=== PATIENT | male | born 1955 | race Caucasian/White ===

== ENCOUNTER 2024-11-23 07:44 | Day surgery (SDC) | payer MEDICARE ==
[2024-11-19 10:54] LABS: BASOPHILS # (AUTO) 0.06 K/uL (0.00-0.20); BASOPHILS % (AUTO) 0.8 % (0.0-5.0); EOSINOPHILS # (AUTO) 0.34 K/uL (0.00-0.70); EOSINOPHILS % (AUTO) 4.7 % (0.0-8.0); HEMATOCRIT 50.6 % (42-54); IMMATURE GRANULOCYTE ABSOLUTE 0.02 K/uL (0-1); LYMPHOCYTES # (AUTO) 1.5 K/uL (1.0-4.8); LYMPHOCYTES % (AUTO) 20.6 % (21.0-51.0); MEAN CORPUSCULAR HEMOGLOBIN 29.1 pg (27.0-33.0); MEAN CORPUSCULAR HGB CONC 31.6 g/dL (32.0-36.0); MONOCYTES # (AUTO) 0.7 K/uL (0.1-1.0); MONOCYTES % (AUTO) 9.8 % (3.0-13.0); NEUTROPHILS # (AUTO) 4.6 K/uL (1.8-7.7); NEUTROPHILS % (AUTO) 63.8 % (40.0-77.0); PLATELET COUNT (AUTO) 173 K/uL (130-400); RED CELL DISTRIBUTION WIDTH 14.1 % (11.0-15.5); WHITE BLOOD COUNT (AUTO) 7.2 K/uL (4.8-10.8)
[2024-11-19 10:57] VITALS: BP 144/95; PULSE 70; RESP 16; TEMP 98.1
[2024-11-19 11:07] LABS: INR 0.97 (0.85-1.15); PROTHROMBIN TIME 10.9 SEC (9.6-11.6)
[2024-11-19 11:09] LABS: PARTIAL THROMBOPLASTIN TIME 30.1 SEC (26.3-35.5)
[2024-11-19 11:14] LABS: ALBUMIN 3.5 g/dL (3.5-5.0); BILIRUBIN,TOTAL 0.5 mg/dL (0.2-1.0); CREATININE 1.1 mg/dL (0.5-1.3); POTASSIUM 4.3 mmol/L (3.5-5.1); TOTAL PROTEIN, SERUM 7.2 g/dL (6.0-8.3)
[2024-11-19 11:15] LABS: APPEARANCE,URINE CLEAR (CLEAR); BILIRUBIN,URINE NEGATIVE (NEGATIVE); COLOR,URINE YELLOW (YELLOW); GLUCOSE, URINE (UA) NEGATIVE (NEGATIVE); KETONES,URINE NEGATIVE (NEGATIVE); LEUKOCYTE ESTERASE ,URINE 75 Leu/uL (NEGATIVE); NITRATE,URINE NEGATIVE (NEGATIVE); PROTEIN,URINE NEGATIVE (NEGATIVE); UROBILINOGEN,URINE 0.2 mg/dL (0.2-1.0)
[2024-11-19 11:16] LABS: ADD UA MICROSCOPIC YES
--- NOTE | 2024-11-19 11:22 | EKG ---
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
--- NOTE | 2024-11-22 15:15 | NUR ---
RE: LABS REPORTED URINE SENSITIVITIES TO JAZMINE/DR MIMS. PER JAZMINE, SHE WILL CALL IN ANTIBIOTICS FOR PATIENT TO START TAKING TODAY.
[2024-11-23] VITALS (20 sets, daily range): BP systolic 113–145; BP diastolic 68–96; PULSE 52–73; RESP 13–22; TEMP 97.4–98.4
[~2024-11-23] VITALS: Ht 180.3 cm; Wt 85.3 kg
[2024-11-23] MEDS: LACTATED RINGERS 1000ML 1,000 ML IV ONE (08:57)
[2024-11-23] MEDS: ceFAZolin SODIUM 2 GM VIAL ONE (08:57)
[2024-11-23] MEDS ORDERED: ondanSETRON 4MG INJ ONE (10:41)
[2024-11-23] MEDS ORDERED: dexaMETHasone SOD PHOSPHATE 10MG/ML 1ML VIAL ONE (10:41)
[2024-11-23] MEDS ORDERED: LIDOCAINE PF 100MG/5ML (2%) SYRINGE 5ML ONE (10:41)
[2024-11-23] MEDS ORDERED: rocuRONium bROMide 10MG/1ML 5ML VL ONE ×2 (10:41→12:20)
[2024-11-23] MEDS ORDERED: proPOFol 10 MG/ML 20ML VIAL IV ONE (10:41)
[2024-11-23] MEDS ORDERED: FENTanyl CITRate PF 50 MCG/1 ML 5ML AMP IV ONE (10:42)
[2024-11-23] MEDS ORDERED: ePHEDrine SULFate 50 MG/ML AMPULE ONE (11:03)
[2024-11-23] MEDS: BUPIvacaine/PF 0.25% 30ML VIAL IJ ONE (11:23)
--- NOTE | 2024-11-23 13:49 | OP ---
Operative Note: DATE OF PROCEDURE: 11/23/24 SURGEON: SANDIP MIMS MD [facility] [employer] [facility]: [] PREOPERATIVE DIAGNOSIS: Left inguinal hernia and umbilical hernia POSTOPERATIVE DIAGNOSIS: Left direct inguinal hernia, right indirect inguinal hernia, and incisional hernia anesthesia: GENERAL endotracheal Anesthesiologist: OVIDIO PROCEDURE: Robotic bilateral inguinal hernia repairs with mesh, robotic ventral hernia with mesh of 6.5 cm x 4 cm defect non incarcerated not recurrent INDICATIONS: Symptomatic umbilical hernia and left inguinal hernia. Specimens removed: Hernia sac Devices left in place: [place] 3D max right and left 13X8CM inguinal mesh see implant report for details. 15cm circular mesh see implant report for details DESCRIPTION OF PROCEDURE: Patient is brought to the operating room placed on the operating table in a supine position. Once general endotracheal anesthesia is achieved patient is placed in supine position and patient's abdomen and perineum are prepped and draped in sterile fashion. We then proceeded to create a transverse incision at the left upper quadrant at Abad's point. And under direct visualization with Optiview went through the abdominal wall and entered the abdominal cavity. Obtain a pneumoperitoneum. Under direct visualization we proceeded to introduce two 8 mm trochars one in the right upper quadrant and one at the epigastric region just to the left of the midline and placed another 8 mm where we had a 5 mm trocar of insertion and switched it out. Placed patient in Trendelenburg and brought the robot and docked it. We then evaluated the groins there was bilateral inguinal hernias. We then proceeded to create peritoneal flap starting laterally at the anterior iliac spine and going medially until the midline at the suprapubic region. And then brought the peritoneal flap down to expose the inguinal canal took down the hernia sac. And Started peritoneal flap going inferiorly so that are mesh would not roll up. We did this on both sides. The right inguinal region was small and lateral to the inferior epigastric vessels being to get an indirect hernia.. In the left inguinal region the hernia was medial to the inferior epigastric vessels making this a direct inguinal hernia. We make sure to pres erve the cord structures bilaterally.. We then placed the right inguinal 13*8cm mesh and then a left inguinal 13x8cm mesh. Each 1 was secured medially at the lacunar ligament using [place] suture. And laterally to the abdominal wall to avoid migration of the mesh. We then proceeded to close the peritoneal flap using running 2 OV lock suture. All needles were taken out. No bleeding was seen. All instruments were removed. Robot was undocked. Patient is flat. I then proceeded to evaluate the defect that was at the anterior abdominal wall. And it was above the umbilicus at the level of the previous incision. And it was [place] defect. I had to add an 8 mm trocar in the right flank and another wound in the right upper quadrant that was lateral so that we had a good and we will to fix the ventral hernia. I then proceeded to take down the peritoneal in the hernia sac using cautery. Once it was completely dissected and removed we then proceeded to measure the defect and it measured 6.5 cm x 4 cm. We then proceeded to bring down the pressure of the intra-abdominal cavity two8 mmHg. A primarily closed the defect using running 0 nonabsorbable V lock. In the it approximated well. I then proceeded to remove the hernia sac and peritoneal flap. In we removed it from the abdomen and sent it for specimen is hernia sac. Done underlay fashion I placed a15 cm [place] mesh and secured it circumferentially with 2-0 of V lock suture. It laid flat with no gaps. We then proceeded to remove all of the needles. Removed the pneumoperitoneum we then proceeded to close all the incisions with 4-0 Monocryl in running subcuticular fashion and Dermabond. Abdominal binder is placed over top. Patient tolerated the procedure well all counts were correct x2 at the end of the procedure. SANDIP MIMS MD Nov 23, 2024 13:49
[2024-11-23] MEDS: acetaMINOPHEN 100 ML ONE (14:33)
[2024-11-23] MEDS: hydroMORPHone 1 MG INJ ONE (14:38)
== END 2024-11-23 17:25 | disposition home or self-care (01) ==
LOC: DAH 07:44
PROVIDERS: ATTEND Student in an Organized Health Care Education/Training Program
DX: K40.20 Bilateral inguinal hernia, without obstruction or gangrene, not specified as recurrent (principal); K43.2 Incisional hernia without obstruction or gangrene; I35.0 Nonrheumatic aortic (valve) stenosis; E66.9 Obesity, unspecified; F17.210 Nicotine dependence, cigarettes, uncomplicated; Z85.828 Personal history of other malignant neoplasm of skin; Z90.79 Acquired absence of other genital organ(s); Z96.659 Presence of unspecified artificial knee joint; Z98.890 Other specified postprocedural states; Z68.26 Body mass index [BMI] 26.0-26.9, adult; Z79.01 Long term (current) use of anticoagulants; Z79.899 Other long term (current) drug therapy
CPT/HCPCS: 80053; 85025; 85610; 85730; 87086 ×2; 87186; 81001; 36415; 93005; 49593; A4223 ×2; A4600; A6260; C1781 ×3; A4663; J7030; A4344; J7120; J3010; J1171; J1100; J0665; J3490 ×3; J2003; J2704; J2405; J0690; C1769; A4930; C1713; A4215; A4213; A4222; A4221; 88302